=== PATIENT | male | born 1935 | race Caucasian/White ===

== ENCOUNTER 2017-05-06 23:55 | Emergency (ER) | payer OTHER, BC ==
[~2017-05-06] VITALS: Ht 175.3 cm; Wt 75.7 kg
--- NOTE | 2017-05-06 23:55 | NUR ---
PT BRET BLS. TAKEN TO BED 8
--- NOTE | 2017-05-06 23:57 | NUR ---
Dr. Ramirez evaluating patient at bedside.
[2017-05-07] VITALS: BP 160/95
--- NOTE | 2017-05-07 | NUR ---
81/M BIBA S/P [facility] FALL FROM HOSP BED/SNF, NO LOC REPORTED. PT ALERT AND ORIENTED TO SELF WITH CLEAR SPEECH, GCS 15. ABRASION ABOVE LEFT EYEBROW, SKIN TEARS X 5 TO RT FOREARM. PMH: HTN, BPH, DEMENTIA, ANXIETY. RX: LISINOPRIL, ALENDRONATE, DONEPEZIL LUNGS CLEAR BL; HR EVEN AND REGULAR; PT DENIES ANY FEVER, CP, SOB, AT THIS TIME; VSS; PATIENT POSITIONED FOR COMFORT; HOB ELEVATED; BEDRAILS UP X2; BED DOWN. ER MD MADE AT BEDSIDE
[2017-05-07] MEDS ORDERED: NEOMYCIN/POLYMYXIN/BACITRACIN 0.9 GM/1 PKT TP ONE (00:25)
[2017-05-07] MEDS ORDERED: HYDROcodone/APAP 5/325 MG 1 TAB TAB PO ONE (00:25)
[2017-05-07] MEDS ORDERED: ATI.5 PO (00:27)
[2017-05-07] MEDS ORDERED: DONE10TA10 PO (00:27)
[2017-05-07] MEDS ORDERED: TAMS0.4C96 PO (00:27)
[2017-05-07] MEDS ORDERED: SOTA80TA PO (00:27)
[2017-05-07] MEDS ORDERED: LISI-420 PO (00:27)
[2017-05-07] MEDS ORDERED: SENN-72 PO (00:27)
[2017-05-07] MEDS ORDERED: ISOS10TA9 PO (00:27)
[2017-05-07] MEDS ORDERED: ACET-2869 PO (00:27)
[2017-05-07] MEDS ORDERED: MIRT15TA PO (00:27)
[2017-05-07] MEDS ORDERED: ALEN70SO1 PO (00:27)
[2017-05-07] MEDS ORDERED: HYDROcodone/APAP 5/325 MG 1 TAB TAB ONE (00:54)
--- NOTE | 2017-05-07 01:06 | NUR ---
PT RETURN FROM CT
--- NOTE | 2017-05-07 02:22 | NUR ---
PT RESTING COMFORTABLY, VSS, ALL NEEDS MET AT THIS TIME
--- NOTE | 2017-05-07 04:05 | NUR ---
PT SLEEPING COMFORTABLY, VSS. NO ACUTE DISTRESS/CHANGES AT THIS TIME. REPORT GIVEN TO ANIRUDH VILLARREAL FROM [facility].
[2017-05-07 05:32] VITALS: BP 137/75
--- NOTE | 2017-05-07 05:32 | NUR ---
Patient discharged with v/s stable. Written and verbal after care instructions given and explained. Patient verbalized understanding. Ambulance Transport with BLS to [facility]. All questions addressed prior to discharge. Advised to follow up with PMD. [facility] AWARE OF PT'S DISCHARGE, SPOKE WITH CHERELLE ROSALES.
--- NOTE | 2017-05-07 05:33 | NUR ---
PT TAKEN BY [facility] TO RETURN TO [facility]
== END 2017-05-07 05:33 | disposition home or self-care (01) ==
LOC: MED 23:55
DX: S50.811A Abrasion of right forearm, initial encounter (principal); S09.8XXA Other specified injuries of head, initial encounter; I10 Essential (primary) hypertension; F03.90 Unspecified dementia, unspecified severity, without behavioral disturbance, psychotic disturbance, mood disturbance, and anxiety; Z79.899 Other long term (current) drug therapy; W06.XXXA Fall from bed, initial encounter; Y93.89 Activity, other specified; Y92.89 Other specified places as the place of occurrence of the external cause; Y99.8 Other external cause status
CPT/HCPCS: 70450; 72125; 99284

== ENCOUNTER 2017-06-22 07:11 | Inpatient (IN) | payer OTHER, BC ==
[~2017-06-22] VITALS: Ht 182.9 cm; Wt 61.7 kg
[~2017-06-22 07:11] MED LIST: ACET-2869 PO; ALEN70SO1 PO; ATI.5 PO; DONE10TA10 PO; ISOS10TA9 PO; LISI-420 PO; MIRT15TA PO; SENN-72 PO; SOTA80TA PO; TAMS0.4C96 PO
--- NOTE | 2017-06-22 07:14 | NUR ---
PT BRET BLS. TAKEN TO BED 3
[2017-06-22 07:19] VITALS: BP 169/74
[2017-06-22] MEDS ORDERED: DONE10TA36 PO (07:31)
[2017-06-22] MEDS ORDERED: NACL 0.9% 1,000 ML IV SCH (07:43)
[2017-06-22] MEDS ORDERED: cefTRIAXone 500 MG in DEXT 5% MINI-BAG PLUS 50 ML IV ONE (07:45)
[2017-06-22] MEDS ORDERED: ONDANSETRON 4 MG/2 ML VIAL IVP ONE (07:45)
[2017-06-22] MEDS ORDERED: MORPHINE SULFATE 4 MG/ML SYR IVP ONE (07:45)
--- NOTE | 2017-06-22 07:45 | NUR ---
Patient being evaluated by physician at bedside.
--- NOTE | 2017-06-22 07:52 | NUR ---
PATIENT PRESENTS TO ED VIA EMS C/O BLOOD IN URINE x TODAY. EMS STATES PATIENT IS FROM [facility]. PTS NICU RN FOUND BLOOD STAINED DIAPER/URINE THIS MORNING AND CALLED EMS. PATIENT STATES PAIN OF 5/10 AT THIS TIME; VSS; PATIENT POSITIONED FOR COMFORT; HOB ELEVATED; BEDRAILS UP X2; BED DOWN. ER MD MADE AWARE OF PT STATUS.
[2017-06-22] MEDS ORDERED: HALOPERIDOL 10 MG/5 ML UDC PO STA (07:59)
[2017-06-22] MEDS ORDERED: diphenhydrAMINE 50 MG/ML VIAL IVP ONE (08:00)
[2017-06-22] MEDS ORDERED: cefTRIAXone 500 MG VIAL ONE (08:08)
[2017-06-22 08:19] LABS: HEMATOCRIT 36.5 % (36-52); HEMOGLOBIN 11.8 g/dL (12.0-18.0); MEAN CORPUSCULAR HEMOGLOBIN 32 pg (27-31); MEAN CORPUSCULAR HGB CONC 32 g/dL (33-37); MEAN CORPUSCULAR VOLUME 99 fL (80-94); PLATELET COUNT (AUTO) 127 K/uL (140-450); RED BLOOD CELL COUNT(AUTO) 3.68 MIL/uL (4.20-6.10); RED CELL DISTRIBUTION WIDTH 13.3 % (11.6-13.7); WHITE BLOOD COUNT (AUTO) 5.5 K/uL (4.8-10.8)
[2017-06-22] MEDS ORDERED: HALOPERIDOL IM 5 MG/ML VIAL IM ONE (08:20)
[2017-06-22 08:39] LABS: ANION GAP 7.8 (8-16); ASPARTATE AMINOTRANSFERASE 17 U/L (15-37); CHLORIDE 109 mmol/L (98-107); CREATININE 1.4 mg/dL (0.7-1.3); GLUCOSE 108 mg/dL (74-106); POTASSIUM 3.8 mmol/L (3.5-5.1); SODIUM SERUM 145 mmol/L (136-145); TOTAL BILIRUBIN 0.4 mg/dL (0.0-1.0); UREA NITROGEN, BLOOD 34 mg/dL (7-18)
[2017-06-22 08:47] LABS: EOSINOPHILS % (MANUAL) 1 % (0-4); LYMPHOCYTES % (MANUAL) 20 % (20-46); MONOCYTES % (MANUAL) 5 % (5-12)
--- NOTE | 2017-06-22 08:53 | NUR ---
PT RESTING. PATIENT STATES PAIN OF 0/10 AT THIS TIME; VSS; PATIENT POSITIONED FOR COMFORT; HOB ELEVATED; BEDRAILS UP X2; BED DOWN. ER MD MADE AWARE OF PT STATUS.
[2017-06-22 08:58] LABS: APPEARANCE,URINE CLOUDY (CLEAR); BILIRUBIN,URINE NEGATIVE (NEGATIVE); BLOOD, URINE 3+ (NEGATIVE); COLOR,URINE YELLOW (YELLOW); LEUKOCYTE ESTERASE ,URINE 3+ (NEGATIVE); NITRITE, URINE POSITIVE (NEGATIVE); PH,URINE >=9.0 (5.0-9.0); UGLUCOSE NEGATIVE (NEGATIVE)
[2017-06-22 09:03] LABS: RBC,URINE 3-10 (FEW) /HPF (0-5)
[2017-06-22 09:11] LABS: WBC,URINE 16-25 (MOD) /HPF (0-5)
--- NOTE | 2017-06-22 09:32 | NUR ---
PT RESTING. FAMILY AT BEDSIDE. PATIENT STATES PAIN OF 0/10 AT THIS TIME; VSS; PATIENT POSITIONED FOR COMFORT; HOB ELEVATED; BEDRAILS UP X2; BED DOWN. ER MD MADE AWARE OF PT STATUS.
[2017-06-22] MEDS ORDERED: HYDROcodone/APAP 7.5/325 MG 1 TAB PO PRN (09:40)
[2017-06-22] MEDS ORDERED: ONDANSETRON 4 MG/2 ML VIAL IVP PRN (09:40)
[2017-06-22] MEDS ORDERED: ACETAMINOPHEN 325 MG TAB PO PRN (09:40)
--- NOTE | 2017-06-22 10:06 | NUR ---
Patient will be admitted to care of DR DOMINGUEZ. Admited to TELE. Will go to room 121B. Belongings list completed. Report to JESUS GERARD.
[2017-06-22 10:15] VITALS: BP 159/85
--- NOTE | 2017-06-22 10:30 | NUR ---
Admitted from ED, with chief complaint of HEMATURIA. PT IS AWAKE, ALERT, ORIENTED TO NAME ONLY. PT IS A 81 y/o ,Male, ,oriented to call light, bed, phone,television, bathroom, smoking policy,visiting hours, procedures, ID bracelet on. Belongings list checked. IV TO RT AC PATENT AND INTACT. CHEST CLEAR. ABDOMEN SOFT, BOWEL SOUNDS PRESENT. WITH LOGAN CATHETER DRAINING MODERATE AMOUNTS OF SLIGHTLY DARK EVA URINE, SMALL AMOUNT OF BLOOD NOTED ON THE URINE OUTPUT. DARK SCABS/BRUISES NOTED ON LT AND RT TANNER, NO SKIN BREAKDOWN. WILL REPOSITION PT EVERY 2 HRS. CONSTANTINE AT THE BEDSIDE, VERBALIZED UNDERSTANDING.
[2017-06-22 11:08] LABS: CHOL/HDL RATIO 3.5 (1-4.5); FREE T4 (FREE THYROXINE) 0.88 ng/dL (0.76-1.46); THYROID STIMULATING HORMONE 1.05 uIU/mL (0.34-3.74)
[2017-06-22] MEDS: NACL 0.9% 1,000 ML IV SCH ×2 (11:36→21:11)
[2017-06-22 12:00] VITALS: BP 155/77
--- NOTE | 2017-06-22 14:00 | NUR ---
PT KEEP ON BENDING HIS RT ARM, IV PUMP KEEPS ON BEEPING. A NEW IV LINE STARTED ON LT UPPER AR WITH GAUGE 20.
[2017-06-22] MEDS ORDERED: MORPHINE SULFATE 2 MG/ML SYR IVP PRN (15:00)
[2017-06-22] MEDS: HALOPERIDOL IM 5 MG/ML VIAL IM PRN (15:13)
--- NOTE | 2017-06-22 15:15 | NUR ---
PT GOT AGITATED AND TRYING TO GET OUT OF BED. HALDOL IM GIVEN ORDERED PRN. WILL CONTINUE TO MONITOR.
[2017-06-22 16:30] VITALS: BP 166/95
[2017-06-22] MEDS ORDERED: LISINOPRIL 20 MG TAB PO SCH (16:35)
--- NOTE | 2017-06-22 17:00 | NUR ---
PT AWAKE, CALM. NO SOB NOTED. CONSTANTINE AT THE BEDSIDE VISITING.
--- NOTE | 2017-06-22 18:55 | NUR ---
LOGAN CATHETER DISCONTINUED ORDERED, PT TOLERATED ACTIVITY WELL.
--- NOTE | 2017-06-22 19:02 | NUR ---
PT RESTING. NO SOB NOTED. NO SIGNS OF PAIN. WILL ENDORSE TO NEXTS SHIFT NURSE FOR CONTINUITY OF CARE.
--- NOTE | 2017-06-22 19:15 | NUR ---
RECEIVED REPORT FROM DAY RN, PATIENT RESTING IN BED, A/O X1, NO S/S OF DISTRESS NOTED, RESPIRATION EVEN AND UNLABORED, IV PATENT AND INTACT, INFUSING NS AT 125ML/HR, CALL LIGHT WITHIN REACH, SAFETY MEASURE ENSURED, WILL CONTINUE TO MONITOR.
[2017-06-22 20:00] VITALS: BP 161/96
[2017-06-22] MEDS: SOTALOL 80 MG TAB PO SCH (21:12)
[2017-06-22] MEDS: MIRTAZAPINE 15 MG TAB PO SCH (21:12)
[2017-06-22] MEDS: DONEPEZIL 10 MG TAB PO SCH (21:12)
[2017-06-22] MEDS: DOCUSATE SODIUM 100 MG GELCAP PO SCH (21:12)
[2017-06-22] MEDS: DICYCLOMINE HCL LIQUID 10 MG/5 ML UDC PO SCH (21:25)
--- NOTE | 2017-06-22 22:25 | NUR ---
PATIENT VOIDED IN BED, CHANGED GOWN AND CLEANED THE PATIENT. REPOSITIONED PATIENT TO HIS COMFORTABLE POSITION. CALL LIGHT WITHIN REACH, SAFETY MEASURE ENSURED, WILL CONTINUE TO MONITOR.
[2017-06-23] VITALS: BP 120/57
--- NOTE | 2017-06-23 00:43 | NUR ---
PATIENT IS SLEEPING, RESPIRATION EVEN AND UNLABORED, NO S/S OF DISTRESS NOTED, CALL LIGHT WITHIN REACH, SAFETY MEASURE ENSURED, WILL CONTINUE TO MONITOR.
[2017-06-23] MEDS: NACL 0.9% 1,000 ML IV SCH ×3 (01:39→17:39)
--- NOTE | 2017-06-23 02:24 | NUR ---
PATIENT IS SLEEPING, RESPIRATION EVEN AND UNLABORED, NO S/S OF DISTRESS NOTED, CALL LIGHT WITHIN REACH, SAFETY MEASURE ENSURED, WILL CONTINUE TO MONITOR.
[2017-06-23 04:00] VITALS: BP 138/66
--- NOTE | 2017-06-23 04:30 | NUR ---
PATIENT VOIDED IN THE BED, CLEANED THE PATIENT AND CHANGED THE SHEET, REPOSITIONED PATIENT TO THE MIDDLE OF THE BED, NO S/S DISTRESS NOTED, CALL LIGHT WITHIN REACH, SAFETY MEASURE ENSURED, WILL CONTINUE TO MONITOR.
[2017-06-23] MEDS: HALOPERIDOL IM 5 MG/ML VIAL IM PRN (06:08)
--- NOTE | 2017-06-23 06:12 | NUR ---
PATIENT YELLING AND TRYING TO GET OUT OF THE BED, WHEN GEOTHERMAL OPERATIONS MANAGER AND I TRIED TO ASSISTED HIM BACK TO HIS BED, PATIENT START TO KICK AND ATTEMPT TO BITE THE GEOTHERMAL OPERATIONS MANAGER, HALDOL 1MG ADMINISTERED ORDERED FOR AGITATION. PATIENT IS RESTING IN BED AT THIS TIME, CALL LIGHT WITH IN REACH, SAFETY MEASURE ENSURED, WILL CONTINUE TO MONITOR.
[2017-06-23 06:58] LABS: BASOPHILS # (AUTO) 0.1 K/uL (0.00-0.22); BASOPHILS % (AUTO) 2.2 % (0.0-2.0); EOSINOPHILS # (AUTO) 0.1 K/uL (0-0.4); EOSINOPHILS % (AUTO) 1.5 % (0.0-4.0); HEMATOCRIT 35.9 % (36-52); HEMOGLOBIN 11.6 g/dL (12.0-18.0); LYMPHOCYTES # (AUTO) 0.7 K/uL (2.0-11.5); LYMPHOCYTES % (AUTO) 13.6 % (20.5-51.1); MEAN CORPUSCULAR HEMOGLOBIN 33 pg (27-31); MEAN CORPUSCULAR HGB CONC 33 g/dL (33-37); MEAN CORPUSCULAR VOLUME 100 fL (80-94); MONOCYTES # (AUTO) 0.5 K/uL (0.8-1.0); MONOCYTES % (AUTO) 8.9 % (1.7-9.3); NEUTROPHILS # (AUTO) 3.9 K/uL (1.8-7.7); NEUTROPHILS % (AUTO) 73.8 % (42.2-75.2); PLATELET COUNT (AUTO) 110 K/uL (140-450); RED BLOOD CELL COUNT(AUTO) 3.58 MIL/uL (4.20-6.10); RED CELL DISTRIBUTION WIDTH 13.4 % (11.6-13.7); WHITE BLOOD COUNT (AUTO) 5.3 K/uL (4.8-10.8)
[2017-06-23 07:07] LABS: ANION GAP 9.5 (8-16); CARBON DIOXIDE 28.5 mmol/L (21-32); CHLORIDE 112 mmol/L (98-107); CREATININE 1.3 mg/dL (0.7-1.3); GLUCOSE 90 mg/dL (74-106); SODIUM SERUM 146 mmol/L (136-145); UREA NITROGEN, BLOOD 28 mg/dL (7-18)
--- NOTE | 2017-06-23 07:15 | NUR ---
ENDORSED PLAN OF CARE TO DAY RN, PATIENT IS IN STABLE CONDITION, NO S/S OF DISTRESS NOTED.
[2017-06-23 07:20] LABS: MAGNESIUM 1.6 mg/dL (1.8-2.4); PHOSPHORUS 2.5 mg/dL (2.5-4.9)
--- NOTE | 2017-06-23 07:25 | NUR ---
RECEIVED REPORT FROM NIGHT RN AT BEDSIDE, PATIENT RESTING IN BED, A/O X1, NO S/S OF DISTRESS NOTED, RESPIRATION EVEN AND UNLABORED, IV PATENT AND INTACT, INFUSING NS AT 125ML/HR, CALL LIGHT WITHIN REACH, FALL RISK MEASURES IN PLACE, WILL CONTINUE TO MONITOR.
[2017-06-23 08:00] VITALS: BP 130/62
[2017-06-23] MEDS ORDERED: TAMSULOSIN 0.4 MG CAP PO SCH (09:00)
[2017-06-23] MEDS: SOTALOL 80 MG TAB PO SCH ×2 (09:00→19:53)
[2017-06-23] MEDS: LACTOBACILLUS RHAMNOSUS GG 1 EACH CAP PO SCH (09:09)
[2017-06-23] MEDS: DOCUSATE SODIUM 100 MG GELCAP PO SCH ×3 (09:09→21:00)
[2017-06-23] MEDS: LISINOPRIL 20 MG TAB PO SCH (09:10)
[2017-06-23] MEDS: DICYCLOMINE HCL LIQUID 10 MG/5 ML UDC PO SCH ×3 (09:11→21:00)
[2017-06-23] MEDS: ISOSORBIDE DINITRATE 10 MG TAB PO SCH (09:11)
--- NOTE | 2017-06-23 09:30 | NUR ---
CHANGED PT'S CHUX WHICH IS WET WITH URINE. NO BLOOD NOTED.
--- NOTE | 2017-06-23 11:00 | NUR ---
PT'S AT BEDSIDE. NOTIFIED MD THAT PT'S WANTS TO SPEAK TO THE MD.
[2017-06-23] MEDS: LORazepam 0.5 MG TAB PO PRN ×3 (11:20→19:35)
--- NOTE | 2017-06-23 11:30 | NUR ---
MADE DR AWARE OF PRELIMINARY RESULT OF BLOOD CULTURE WHICH IS POSITIVE FOR GRAM NEGATIVE CESAR.
[2017-06-23 12:00] VITALS: BP 156/72
--- NOTE | 2017-06-23 13:01 | NUR ---
FAXED INITIAL REVIEW TO [facility] [phone] PHONE SINGH [phone] REF #[id number]
[2017-06-23] MEDS ORDERED: MAG SULF 2000 MG/WATER PREMIX 50 ML IV SCH (13:30)
[2017-06-23] MEDS ORDERED: ALBUTEROL SULFATE/IPRATROPIU 3 ML SOL IH PRN (14:20)
--- NOTE | 2017-06-23 14:40 | NUR ---
PATIENT HAS BEEN SCREENED AND CATEGORIZED HIGH NUTRITION RISK. PATIENT WILL BE SEEN WITHIN 1-2 DAYS OF ADMISSION. 06/23/17-06/24/[address]
[2017-06-23 16:00] VITALS: BP 145/77
--- NOTE | 2017-06-23 16:30 | NUR ---
PT PULLED OUT HIS IV. TIP INTACT. WILL TRY TO PUT IN A NEW ONE.
[2017-06-23] MEDS: PHENAZOPYRIDINE 100 MG TAB PO SCH (18:15)
--- NOTE | 2017-06-23 19:00 | NUR ---
IV INSERTED ON THE RIGHT UPPER ARM. 22G.
--- NOTE | 2017-06-23 19:30 | NUR ---
ENDORSED PT TO HOTEL OPERATIONS MANAGER RN. PT IN STABLE CONDITION.
--- NOTE | 2017-06-23 19:31 | NUR ---
RECEIVED REPORT FROM AM NURSE. AOX1, ABLE TO AMBULATE WITH 2 PERSON MAXIMUM ASSIST, CONFUSED, AND AGITATED AT THIS TIME, TRYING TO GET OUT OF BED. ASSISTED PT BACK TO BED. HEADWAITRESS IN PLACE, PT HAS PACEMAKER. SPO2 97% ON ROOM AIR, RR 20 EVEN AND UNLABORED. DRYNESS NOTED ON BUE, MULTIPLE BRUISES, DISCOLORATIONS AND SCABS NOTED. SCDs IN PLACE. IV ACCESS ASYMPTOMATIC, PATENT AND INTACT. IVF INFUSING WELL. DISCUSSED AND REVIEWED PLAN OF CARE WITH PT. WILL CONTINUE WITH CONSTANT REINFORCEMENT. ALL NEEDS MET. BED ALARM AND SAFETY MEASURES ENSURED. CALL LIGHT WITHIN REACH. WILL CONTINUE TO MONITOR.
[2017-06-23] MEDS: MIRTAZAPINE 15 MG TAB PO SCH ×2 (19:53→21:00)
[2017-06-23] MEDS: DONEPEZIL 10 MG TAB PO SCH (19:53)
--- NOTE | 2017-06-23 19:54 | NUR ---
PT AGITATED, PT ABLE TO TAKE SOME MEDICATION, ARICEPT PO AND SOTALOL PO. PT SPIT OUT DUE MEDICATIONS REMERON PO, BENTYL AND COLACE PO. UNABLE TO ADMINISTERED REMAINING DUE MEDS DESPITE EDUCATION, PT STATING "THEY'RE TRYING TO PUT ME TO SLEEP." MADE DR CRUZ AWARE.
[2017-06-23 20:00] VITALS: BP 155/70
--- NOTE | 2017-06-23 23:00 | NUR ---
PT INCONTINENT TO URINE. PT CLEANED, TURNED AND REPOSITIONED BY GENERAL STUDIES PROGRAM CHAIR. PT TOLERATED WELL. PT SLEEPING, NO S/S OF ACUTE DISTRESS. ALL NEEDS MET. IVF INFUSING WELL. SAFETY MEASURES ENSURED. CALL LIGHT WITHIN REACH.
[2017-06-24] VITALS: BP 144/82
[2017-06-24] MEDS: NACL 0.9% 1,000 ML IV SCH ×3 (01:39→17:39)
--- NOTE | 2017-06-24 03:30 | NUR ---
PT SLEEPING, NO S/S OF ACUTE DISTRESS. ALL NEEDS MET. IVF INFUSING WELL. SAFETY MEASURES ENSURED. CALL LIGHT WITHIN REACH.
[2017-06-24 04:00] VITALS: BP 162/80
[2017-06-24 05:43] LABS: FOLIC ACID 9.9 ng/mL (>3.0)
[2017-06-24 06:26] LABS: BASOPHILS # (AUTO) 0.2 K/uL (0.00-0.22); BASOPHILS % (AUTO) 3.7 % (0.0-2.0); EOSINOPHILS # (AUTO) 0.1 K/uL (0-0.4); EOSINOPHILS % (AUTO) 2.7 % (0.0-4.0); HEMATOCRIT 34.7 % (36-52); HEMOGLOBIN 11.4 g/dL (12.0-18.0); LYMPHOCYTES % (AUTO) 22.8 % (20.5-51.1); MEAN CORPUSCULAR HEMOGLOBIN 33 pg (27-31); MEAN CORPUSCULAR HGB CONC 33 g/dL (33-37); MEAN CORPUSCULAR VOLUME 99 fL (80-94); MONOCYTES # (AUTO) 0.7 K/uL (0.8-1.0); MONOCYTES % (AUTO) 15.2 % (1.7-9.3); NEUTROPHILS # (AUTO) 2.3 K/uL (1.8-7.7); NEUTROPHILS % (AUTO) 55.6 % (42.2-75.2); PLATELET COUNT (AUTO) 118 K/uL (140-450); RED CELL DISTRIBUTION WIDTH 13.2 % (11.6-13.7); WHITE BLOOD COUNT (AUTO) 4.3 K/uL (4.8-10.8)
[2017-06-24 06:55] LABS: ANION GAP 7.1 (8-16); CARBON DIOXIDE 28.6 mmol/L (21-32); CHLORIDE 112 mmol/L (98-107); CREATININE 1.2 mg/dL (0.7-1.3); GLUCOSE 93 mg/dL (74-106); POTASSIUM 3.7 mmol/L (3.5-5.1); SODIUM SERUM 144 mmol/L (136-145); UREA NITROGEN, BLOOD 24 mg/dL (7-18)
[2017-06-24 07:02] LABS: MAGNESIUM 2.2 mg/dL (1.8-2.4); PHOSPHORUS 2.5 mg/dL (2.5-4.9)
--- NOTE | 2017-06-24 07:15 | NUR ---
ENDORSED PLAN OF CARE WITH AM NURSE. CONDITION STABLE.
--- NOTE | 2017-06-24 07:20 | NUR ---
RECEIVED REPORT FROM GEOLOGY ASSOCIATE RN. PATIENT IS AOX1, NO SIGNS AND SYMPTOMS OF ACUTE DISTRESS NOTED AT THIS TIME. HAS IV TO RIGHT UPPER ARM 22G, NS INFUSING AT 125 ML/HR. SITE IS CLEAN, DRY, PATENT AND INTACT. BED IN LOWEST POSITION, SIDERAILS UP X2, CALL LIGHT PLACED WITHIN REACH. WILL CONTINUE TO MONITOR.
[2017-06-24 08:00] VITALS: BP 148/90
[2017-06-24] MEDS: CALCIUM CARB/VIT-D 500 MG/200 IU 1 TAB PO SCH (09:12)
[2017-06-24] MEDS: DOCUSATE SODIUM 100 MG GELCAP PO SCH ×2 (09:13→21:45)
[2017-06-24] MEDS: PHENAZOPYRIDINE 100 MG TAB PO SCH ×3 (09:13→18:00)
[2017-06-24] MEDS: LACTOBACILLUS RHAMNOSUS GG 1 EACH CAP PO SCH (09:13)
[2017-06-24] MEDS: LISINOPRIL 20 MG TAB PO SCH (09:13)
[2017-06-24] MEDS: TAMSULOSIN 0.4 MG CAP PO SCH (09:14)
[2017-06-24] MEDS: SOTALOL 80 MG TAB PO SCH ×2 (09:14→21:45)
[2017-06-24] MEDS: ISOSORBIDE DINITRATE 10 MG TAB PO SCH (09:14)
[2017-06-24] MEDS: DICYCLOMINE HCL LIQUID 10 MG/5 ML UDC PO SCH ×2 (09:15→21:46)
[2017-06-24 12:00] VITALS: BP 163/95
--- NOTE | 2017-06-24 12:10 | NUR ---
PATIENT SITTING IN A CHAIR WITH EAR FLAP BINDER NEXT TO HIM. HE IS EATING HIS LUNCH.
--- NOTE | 2017-06-24 12:30 | NUR ---
PATIENT BACK IN HIS BED, CONTINUING TO TRY TO GET OUT OF BED AND WANDER AROUND. PATIENT IS A FALL RISK AND EXPLAINING TO HIM THAT WE WOULD LIKE HIM TO STAY IN BED SO THAT HE WON'T INJURE HIMSELF. PATIENT INSISTS THAT HE WON'T FALL. STEPPED AWAY AND PATIENT KEPT TRYING TO GET OUT OF BED.
--- NOTE | 2017-06-24 13:00 | NUR ---
PATIENT AT THIS TIME IS STILL CONTINUING TO GET OUT OF BED, HAVE BEEN AT THE BEDSIDE WITH HIM AND 2 OTHER NURSES HELPING ME TO CALM HIM DOWN AND RELAX. THAT WE WOULD PREFER FOR HIM TO STAY IN BED SO THAT HE WON'T WALK AROUND AND POTENTIALLY FALL. PATIENT IS BEING NONCOMPLIANT, COMBATIVE, CONTINUES TO HIT OTHER NURSES AND MYSELF. A DOSE OF .2ML HALDOL HAS BEEN ADMINISTERED IM. WILL CONTINUE TO MONITOR.
[2017-06-24] MEDS ORDERED: HALOPERIDOL IM 5 MG/ML VIAL IM SCH (13:30)
--- NOTE | 2017-06-24 13:32 | NUR ---
AGITATED , RESTLESS TRIED TO GET OUT OF BED , HALDOL 4MG IM GIVEN ORDERED
--- NOTE | 2017-06-24 13:40 | NUR ---
PATIENT STILL COMBATIVE, CHARGE NURSE HAS ASKED DR WEBSTER TO INCREASE THE DOSE OF HALDOL TO GIVE TO PATIENT. SHE ADMINISTERED THE MEDICATION TO THE PATIENT DUE TO FIRST DOSE NOT BEING EFFECTIVE. WILL CONTINUE TO MONITOR.
--- NOTE | 2017-06-24 14:00 | NUR ---
PATIENT CONTINUES TO BE COMBATIVE, CURSING AT THE NURSES. CHARGE NURSE HAS ASKED FOR AN ORDER TO PUT WRIST RESTRAINTS ON PATIENT. CALLED PATIENTS TO HAVE HER COME BE AT THE BEDSIDE TO TRY TO HELP US CALM HIM DOWN. WILL CONTINUE TO MONITOR.
--- NOTE | 2017-06-24 14:09 | NUR ---
FAXED CONCURRENT REVIEW TO [facility] [phone] PHONE SINGH [phone]
--- NOTE | 2017-06-24 15:33 | NUR ---
06/24/17 RD INITIAL ASSESSMENT COMPLETED PLEASE REFER TO NUTRITION ASSESSMENT UNDER CARE ACTIVITY FOR ESTIMATED NUTRITIONAL NEEDS. 1. CONTINUE MECHANICAL SOFT DIET WITH BOOST TID TOLERATED PER MD 2. ENCOURAGE INCREASED PO INTAKES; ENCOURAGE INTAKE OF PROTEIN SUPPLEMENTATION -PT MEETING 82% OF ESTIMATED KCAL AND PROTEIN NEEDS WITH CURRENT PO INTAKE 3. RD TO FOLLOW-UP 3-5 DAYS, MODERATE RISK SHIN ROBB, RD
[2017-06-24 16:00] VITALS: BP 181/97
--- NOTE | 2017-06-24 16:34 | NUR ---
POLTS Check for Validity, all documents are filed on chart
--- NOTE | 2017-06-24 19:26 | NUR ---
ENDORSED PATIENT TO FORGING PRESS LEVER TENDER RN FOR CONTINUITY OF CARE. PATIENT IN STABLE CONDITION.
--- NOTE | 2017-06-24 19:30 | NUR ---
RECEIVED REPORT FROM AM NURSE. AOX1, ABLE TO AMBULATE WITH 2 PERSON MAXIMUM ASSIST, CONFUSED AND FORGETFUL AT BASELINE. PT RESTING COMFORTABLY IN BED AT THIS TIME. CIVIL ENGINEER IN TRAINING IN PLACE, PT HAS PACEMAKER. PT DENIES CHEST PAIN OR S/S OF ACUTE DISTRESS. SPO2 99% ON ROOM AIR, RR 20 EVEN AND UNLABORED. DRYNESS NOTED ON BUE, MULTIPLE BRUISES, DISCOLORATIONS AND SCABS NOTED. SCDs IN PLACE. BILAT SOFT WRIST RESTRAINTS IN PLACE AT THIS TIME DUE TO PT PREVIOUSLY TRYING TO GET OUT OF BED, WILL MONITOR. IV ACCESS ASYMPTOMATIC, PATENT AND INTACT. IVF INFUSING WELL. DISCUSSED AND REVIEWED PLAN OF CARE WITH PT. WILL CONTINUE WITH CONSTANT REINFORCEMENT. ALL NEEDS MET. BED ALARM AND SAFETY MEASURES ENSURED. CALL LIGHT WITHIN REACH. WILL CONTINUE TO MONITOR.
[2017-06-24 20:00] VITALS: BP 146/79
--- NOTE | 2017-06-24 21:00 | NUR ---
PT SLEEPING COMFORTABLY, NO S/S OF ACUTE DISTRESS. SOFT WRIST RESTRAINTS REMOVED AT THIS TIME, WILL MONITOR PT. ALL NEEDS MET. IVF INFUSING WELL. SAFETY MEASURES ENSURED. CALL LIGHT WITHIN REACH. WILL CONTINUE TO MONITOR.
[2017-06-24] MEDS: MIRTAZAPINE 15 MG TAB PO SCH (21:45)
[2017-06-24] MEDS: QUEtiapine FUMARATE 25 MG TAB PO SCH (21:45)
[2017-06-24] MEDS: DONEPEZIL 10 MG TAB PO SCH (21:46)
--- NOTE | 2017-06-24 21:47 | NUR ---
ADMINISTERED DUE MEDS WITH EDUCATION. PT STATED "OK," ABLE TO SWALLOW MEDICATIONS WELL. PT CLEANED, TURNED AND REPOSITIONED BY CNAs, PT TOLERATED WELL. ALL NEEDS MET. IVF INFUSING WELL. SAFETY MEASURES ENSURED. CALL LIGHT WITHIN REACH. WILL CONTINUE TO MONITOR.
--- NOTE | 2017-06-24 23:00 | NUR ---
PT SLEEPING COMFORTABLY, NO S/S OF ACUTE DISTRESS. ALL NEEDS MET. IVF INFUSING WELL. SAFETY MEASURES ENSURED. CALL LIGHT WITHIN REACH. WILL CONTINUE TO MONITOR.
[2017-06-25] VITALS: BP 166/84
[2017-06-25] MEDS ORDERED: ISOSORBIDE DINITRATE 10 MG TAB PO SCH (00:55)
[2017-06-25] MEDS: NACL 0.9% 1,000 ML IV SCH ×2 (01:46→09:47)
--- NOTE | 2017-06-25 01:46 | NUR ---
SPOKE WITH DR CRUZ, MADE AWARE OF ELEVATED BP AT THIS TIME 166/84, ORDERS RECEIVED. ADMINISTERED ISOSORBIDE DINITRATE 10MG PO ORDERED. PT STATED "OK," ABLE TO SWALLOW MED WELL. PT INCONTINENT IN URINE, PT CLEANED, TURNED AND REPOSITIONED, OFFLOADED PRESSURE AREAS. ALL NEEDS MET. IVF INFUSING WELL. SAFETY MEASURES ENSURED. CALL LIGHT WITHIN REACH. WILL CONTINUE TO MONITOR.
[2017-06-25 04:00] VITALS: BP 119/64
--- NOTE | 2017-06-25 04:30 | NUR ---
PT CLEANED, ASSISTED TO TURN AND REPOSITION SELF BY CNAs. PT TOLERATED WELL. PT SLEEPING COMFORTABLY, NO S/S OF ACUTE DISTRESS, SPO2 97% ON ROOM AIR, RR 18 EVEN AND UNLABORED. ALL NEEDS MET. IVF INFUSING WELL. SAFETY MEASURES ENSURED. CALL LIGHT WITHIN REACH. WILL CONTINUE TO MONITOR.
[2017-06-25 06:17] LABS: BASOPHILS # (AUTO) 0.2 K/uL (0.00-0.22); BASOPHILS % (AUTO) 3.9 % (0.0-2.0); EOSINOPHILS # (AUTO) 0.1 K/uL (0-0.4); EOSINOPHILS % (AUTO) 2.4 % (0.0-4.0); HEMATOCRIT 32.2 % (36-52); HEMOGLOBIN 10.6 g/dL (12.0-18.0); LYMPHOCYTES # (AUTO) 1.1 K/uL (2.0-11.5); MEAN CORPUSCULAR HEMOGLOBIN 33 pg (27-31); MEAN CORPUSCULAR HGB CONC 33 g/dL (33-37); MEAN CORPUSCULAR VOLUME 99 fL (80-94); MONOCYTES # (AUTO) 0.7 K/uL (0.8-1.0); MONOCYTES % (AUTO) 14.3 % (1.7-9.3); NEUTROPHILS # (AUTO) 2.8 K/uL (1.8-7.7); NEUTROPHILS % (AUTO) 56.4 % (42.2-75.2); PLATELET COUNT (AUTO) 115 K/uL (140-450); RED BLOOD CELL COUNT(AUTO) 3.25 MIL/uL (4.20-6.10); RED CELL DISTRIBUTION WIDTH 13.1 % (11.6-13.7); WHITE BLOOD COUNT (AUTO) 4.9 K/uL (4.8-10.8)
[2017-06-25 06:45] LABS: ANION GAP 9.5 (8-16); CARBON DIOXIDE 28.1 mmol/L (21-32); CHLORIDE 112 mmol/L (98-107); CREATININE 1.1 mg/dL (0.7-1.3); GLUCOSE 98 mg/dL (74-106); POTASSIUM 3.6 mmol/L (3.5-5.1); SODIUM SERUM 146 mmol/L (136-145); UREA NITROGEN, BLOOD 21 mg/dL (7-18)
--- NOTE | 2017-06-25 07:15 | NUR ---
ENDORSED PLAN OF CARE TO AM NURSE. CONDITION STABLE.
--- NOTE | 2017-06-25 07:16 | NUR ---
RECEIVED REPORT FROM CANE PACKER NURSE. PATIENT IS SLEEPING, AROUSABLE BY VOICE. NO DISTRESS NOTED. RESPIRATIONS EVEN, UNLABORED, ON ROOM AIR. DENIES ANY PAIN. AAOX1, BEDREST, CALM, COOPERATIVE, SKIN COLOR APPROPRIATE TO ETHNICITY, WARM TO TOUCH. SKIN IS INTACT, BUT HAS MULTIPLE DISCOLORATIONS AND CLOSED SCABS ON B/L UE. IV SITE IS INTACT, PATENT, AND INFUSING IVF PER ORDERS. LUNGS CTA ON ALL LOBES. ABDOMEN SOFT, NON-DISTENDED. REVIEWED PLAN OF CARE WITH PATIENT. PATIENT VERBALIZED UNDERSTANDING, REQUIRES REINFORCEMENT. NON-BEHAVIORAL RESTRAINTS OFF FOR NOW. SAFETY MEASURES IN PLACE, CALL LIGHT WITHIN REACH, FALL PREVENTIONS IN PLACE. WILL CONTINUE TO MONITOR.
[2017-06-25 08:00] VITALS: BP 145/82
[2017-06-25] MEDS ORDERED: LACT1.4C PO (08:29)
[2017-06-25] MEDS ORDERED: TAMS0.4C96 PO (08:29)
[2017-06-25] MEDS ORDERED: SULF-59 PO (08:29)
--- NOTE | 2017-06-25 09:30 | NUR ---
CM NOTE SPOKE W/ JESSENIA FROM [facility]. MADE AWARE THAT PATIENT HAS ORDERS TO GO BACK HOME ON PO ABX. PER JESSENIA, PATIENT HAS CO-PAY OF $100 FOR GURNEY TRANSPORT. SPOKE W/ CONSTANTINE, RE. PATIENT'S DISCHARGE AND CO-PAY FOR TRANSPORT. REFUSED TO PAY FOR GURNEY. ADVISED CONSTANTINE THAT FOR THIS TRANSPORT TO BE CONSIDERED SAFE, CM RECOMMENDED FOR GURNEY TRANSPORT (PATIENT HAS HAD HX OF ATTEMPTING TO GET OUT OF BED; INSTABILITY). STILL REFUSED TO PAY FOR GURNEY TRANSPORT AND REQUESTED FOR WHEELCHAIR TRANSPORT. "HE HAS ALWAYS BEEN TRANSPORTED BY WHEELCHAIR". WHEELCHAIR TRANSPORT TO BE SET UP BY [facility] FOR [facility]. ETA BETWEEN 1400 - 1500. CALLED DAQUAN RICKS FROM [facility]; MADE AWARE OF PATIENT'S DISCHARGE. FAXED H&P, MED LIST, LABS, URINE CULTURE & ORDER TO CONTINUE HOSPICE CARE UNDER [facility]. (FAX# [phone]) SPOKE W/ YULIET, [place] [employer] FROM [facility] (C: [phone]); MADE AWARE OF PATIENT'S DISCHARGE AND WILL CONTINUE SERVICE ONCE PATIENT HAS RETURNED FROM HOSPITAL. FAXED H&P. (FAX# [phone])
[2017-06-25] MEDS: LACTOBACILLUS RHAMNOSUS GG 1 EACH CAP PO SCH (09:31)
[2017-06-25] MEDS: QUEtiapine FUMARATE 25 MG TAB PO SCH (09:31)
[2017-06-25] MEDS: DOCUSATE SODIUM 100 MG GELCAP PO SCH (09:31)
[2017-06-25] MEDS: CALCIUM CARB/VIT-D 500 MG/200 IU 1 TAB PO SCH (09:32)
[2017-06-25] MEDS: ISOSORBIDE DINITRATE 10 MG TAB PO SCH (09:32)
[2017-06-25] MEDS: SOTALOL 80 MG TAB PO SCH (09:32)
[2017-06-25] MEDS: LISINOPRIL 20 MG TAB PO SCH (09:33)
[2017-06-25] MEDS: TAMSULOSIN 0.4 MG CAP PO SCH (09:33)
[2017-06-25] MEDS: PHENAZOPYRIDINE 100 MG TAB PO SCH ×2 (09:33→13:19)
[2017-06-25] MEDS: DICYCLOMINE HCL LIQUID 10 MG/5 ML UDC PO SCH (09:33)
--- NOTE | 2017-06-25 09:45 | NUR ---
PATIENT LYING IN BED WATCHING TV. NO DISTRESS NOTED. DENIES ANY PAIN, FLACC 0. CONDITION UNCHANGED. ASSISTED RETORT FURNACE OPERATOR IN CLEANING PATIENT AND REPOSITIONING. SCHEDULED MEDICATIONS DUE GIVEN. SAFETY MEASURES IN PLACE, CALL LIGHT WITHIN REACH, FALL PREVENTIONS IN PLACE. NO RESTRAINTS ON AT THIS TIME DUE TO PATIENT BEING CALM AND COOPERATIVE. WILL CONTINUE TO MONITOR.
--- NOTE | 2017-06-25 11:37 | NUR ---
PATIENT LYING IN BED SLEEPING. AROUSABLE BY VOICE. NO DISTRESS NOTED. DENIES ANY PAIN, FLACC 0. CONDITION UNCHANGED. PATIENT BEING DISCHARGED TO [facility], PATIENT MADE AWARE AND PATIENT VERBALIZED UNDERSTANDING. WILL CONTINUE TO MONITOR.
[2017-06-25 12:00] VITALS: BP 123/69
--- NOTE | 2017-06-25 12:30 | NUR ---
NOTIFIED PATIENT'S , CONSTANTINE, VIA PHONE ON ESTIMATED TIME THAT TRANSPORT SERVICE WILL MOP MAN PATIENT FROM HOSPITAL TO TAKE TO [facility]. ESTIMATED MOP MAN TIME IS BETWEEN [id number]. PATIENT ALSO AWARE THAT HE WILL BE DISCHARGED TO [facility] TODAY. SAFETY MEASURES IN PLACE, CALL LIGHT WITHIN REACH. WILL CONTINUE TO MONITOR.
--- NOTE | 2017-06-25 14:00 | NUR ---
PATIENT LYING IN BED WATCHING TV. NO DISTRESS NOTED. DENIES ANY PAIN, FLACC 0. CALM, COOPERATIVE, FORGETFUL. CONDITION UNCHANGED. NO RESTRAINTS ON PATIENT DUE TO PATIENT BEHAVING WELL. SAFETY MEASURES IN PLACE, CALL LIGHT WITHIN REACH. WILL CONTINUE TO MONITOR.
--- NOTE | 2017-06-25 15:00 | NUR ---
PATIENT SITTING IN BED READY TO GO BACK TO [facility]. [employer] HANDS DIVISION CONTROLLER HERE ON UNIT TO TAKE PATIENT TO [facility]. DISCHARGE INSTRUCTIONS PROVIDED TO PATIENT, FOLLOW-UP VISITS, AND NEW/CHANGED MEDICATIONS. PATIENT UNABLE TO COMPREHEND DUE TO DEMENTIA. NO FAMILY MEMBER AT BEDSIDE AT THIS TIME BUT PATIENT'S CONSTANTINE, KNOWS ABOUT PATIENT'S DISCHARGE AND SHE WILL VISIT HIM LATER TODAY AT [facility]. IV SITE REMOVED WITH MINIMAL BLOOD AND LUMEN COMPLETELY INTACT. ID BANDS REMOVED. ASSISTED PATIENT FROM BED TO WHEELCHAIR. PATIENT ABLE TO AMBULATE WITH ASSISTANCE. ESCORTED PATIENT DOWN TO LOBBY VIA WHEELCHAIR AND ASSISTED PATIENT TO TRANSPORT [place] [facility]. PATIENT DISCHARGED AT THIS TIME TO [facility] IN STABLE CONDITION. ALL BELONGINGS WITH PATIENT. [facility] STAFF AWARE THAT PATIENT IS ARRIVING AND ARE EXPECTING HIM.
== END 2017-06-25 15:00 | disposition home or self-care (01) | DRG 689 ==
LOC: MED 07:11 → MTU 09:17
PROVIDERS: ADMIT Family Medicine; ATTEND Family Medicine
DX: N39.0 Urinary tract infection, site not specified (principal); N17.0 Acute kidney failure with tubular necrosis; E87.0 Hyperosmolality and hypernatremia; E44.0 Moderate protein-calorie malnutrition; Z68.1 Body mass index [BMI] 19.9 or less, adult; G30.0 Alzheimer's disease with early onset; F02.80 Dementia in other diseases classified elsewhere, unspecified severity, without behavioral disturbance, psychotic disturbance, mood disturbance, and anxiety; E87.8 Other disorders of electrolyte and fluid balance, not elsewhere classified; Z66 Do not resuscitate; Z88.8 Allergy status to other drugs, medicaments and biological substances; Z91.013 Allergy to seafood; F41.9 Anxiety disorder, unspecified; Z91.041 Radiographic dye allergy status; I10 Essential (primary) hypertension; N40.0 Benign prostatic hyperplasia without lower urinary tract symptoms; I25.10 Atherosclerotic heart disease of native coronary artery without angina pectoris; Z95.0 Presence of cardiac pacemaker; Z95.1 Presence of aortocoronary bypass graft; M81.0 Age-related osteoporosis without current pathological fracture; Z79.899 Other long term (current) drug therapy; D50.9 Iron deficiency anemia, unspecified; E83.42 Hypomagnesemia; D63.8 Anemia in other chronic diseases classified elsewhere; N20.0 Calculus of kidney; M51.36 Other intervertebral disc degeneration, lumbar region
CPT/HCPCS: 36415; 51702; 71010; 80048; 80053; 81001; 82607; 82728; 82746; 83036; 83540; 83735; 83880; 84100; 84439; 84443; 84484; 85025; 85045; 85610; 85730; 87040; 87081; 87086; 87186; 96365; 96372; 96375; 99285; J0696; J1200; J1630; J2270; J2405; J3475; J7030; J7060; Q0092